=== PATIENT | female | born 1980 ===

== ENCOUNTER 2021-03-01 00:48 | Emergency (ER) | payer SELFPAY ==
--- NOTE | 2021-03-01 00:53 | NUR ---
NOT IN LOBBY WHEN CALLED
--- NOTE | 2021-03-01 01:01 | NUR ---
NOT IN LOBBY WHEN CALLED
--- NOTE | 2021-03-01 01:15 | NUR ---
NOT IN LOBBY WHEN CALLED
== END 2021-03-01 01:16 | disposition left against medical advice (07) ==
LOC: ED 01:15
DX: Z53.21 Procedure and treatment not carried out due to patient leaving prior to being seen by health care provider (principal)